=== PATIENT | female | born 1960 | race Caucasian/White ===

== ENCOUNTER 2018-07-18 22:26 | Emergency (ER) | payer OTHER ==
[2018-07-18 22:57] VITALS: BP 117/70; PULSE 82; RESP 16; TEMP 98.7; O2SAT 97
[2018-07-18] MEDS ORDERED: Sodium Chloride 0.9% 1,000 ML IV STA (23:22)
[2018-07-19 00:03] LABS: BASO % 0.4 % (0.0-2.0); EOS # 0.1 K/uL (0.0-0.7); EOS % 1.4 % (0.0-4.0); HEMOGLOBIN 12.9 g/dL (12.0-16.0); LYMPH # 0.9 K/uL (1.0-4.3); LYMPH % 10.3 % (20.0-40.0); MEAN CELL VOLUME 92.2 fl (81.0-99.0); MEAN CORPUSCULAR HEMOGLOBIN 30.8 pg (27.0-31.0); MEAN CORPUSCULAR HGB CONC 33.4 g/dL (33.0-37.0); MEAN PLATELET VOLUME 7.8 fl (7.2-11.7); MONO # 0.4 K/uL (0.0-0.8); MONO % 4.4 % (0.0-10.0); NEUT # 7.3 K/uL (1.8-7.0); NEUT % 83.5 % (50.0-75.0); RBC 4.19 Mil/uL (3.80-5.20); WHITE BLOOD COUNT 8.7 K/uL (4.8-10.8)
--- NOTE | 2018-07-19 00:10 | ED PDOC ---
HPI: Abdomen Time Seen by Provider: 07/18/18 22:59 Chief Complaint (Nursing): Abdominal Pain Chief Complaint (Provider): Abdominal Pain History Per: Patient History/Exam Limitations: no limitations Context: Travel Location Of Pain/Discomfort: Epigastric Associated Symptoms: Vomiting Additional Complaint(s): 57 y/o female presents to the ED complaining of abdominal pain with associated vomiting and diarrhea, onset x4 days ago. Patient reports that she started to experience episgastric discomfort x4 days ago then, x2 days ago, on Thursday, she started to have multiple episodes of vomiting and diarrhea.Patient reports vomiting was nbnb and diarrhea was watery. More recently however, diarrhea is a little blood tinged and patient reports associated rectal irritation. Patient states she came back from [place] a week ago. She also reports sick contact with at least one colleague at work with similar symptoms. She denies fever, chills or urinary symptoms. PMD: Joseluis Past Medical History Reviewed: Historical Data, Nursing Documentation, Vital Signs Vital Signs: Last Vital Signs Temp 98.7 F 07/18/18 22:52 Pulse 82 07/18/18 22:52 Resp 16 07/18/18 22:52 BP 117/70 07/18/18 22:52 Pulse Ox 97 07/18/18 22:52 - Medical History PMH: No Chronic Diseases - Surgical History Surgical History: Cholecystectomy - Family History Family History: States: No Known Family Hx - Social History Current smoker - smoking cessation education provided: No Alcohol: None Drugs: Denies - Immunization History Hx Tetanus Toxoid Vaccination: Yes Hx Influenza Vaccination: No Hx Pneumococcal Vaccination: No - Home Medications Home Medications: Ambulatory Orders Medication Instructions Recorded Ondansetron [Zofran] 4 mg PO Q6H PRN #5 tab 07/19/18 - Allergies Allergies/Adverse Reactions: Allergies Allergy/AdvReac Type Severity Reaction Status Date / Time No Known Allergies Allergy Verified 07/18/18 22:52 Review of Systems ROS Statement: Except As Marked, All Systems Reviewed And Found Negative (as per HPI otherwise negative) Constitutional: Negative for: Fever, Chills Gastrointestinal: Positive for: Vomiting, Diarrhea Genitourinary Female: Negative for: Dysuria, Frequency, Incontinence Physical Exam - Reviewed Nursing Documentation Reviewed: Yes Vital Signs Reviewed: Yes - Physical Exam Appears: Positive for: No Acute Distress Head Exam: Positive for: ATRAUMATIC, NORMOCEPHALIC Skin: Positive for: Warm, Dry Eye Exam: Positive for: EOMI, PERRL ENT: Positive for: Other (moist mucous membranes) Neck: Positive for: Painless ROM, Supple Cardiovascular/Chest: Positive for: Regular Rate, Rhythm. Negative for: Murmur Respiratory: Positive for: Normal Breath Sounds. Negative for: Respiratory Distress Gastrointestinal/Abdominal: Positive for: Soft, Tenderness (mild epigastric tenderness to palpation). Negative for: Mass, Distended, Guarding, Rebound Back: Positive for: Normal Inspection. Negative for: Muscle Spasm Extremity: Positive for: Normal ROM. Negative for: Deformity Lymphatic: Negative for: Adenopathy Neurologic/Psych: Positive for: Alert. Negative for: Motor/Sensory Deficits - Laboratory Results Result Diagrams: 07/18/18 23:50 07/18/18 23:50 - ECG O2 Sat by Pulse Oximetry: 97 (RA) Pulse Ox Interpretation: Normal Medical Decision Making Medical Decision Making: Time: 23:20 Initial Impression: vomiting and diarrhea Differential included but not limited to gastroenteritis, viral syndrome, dehydration, electrolyte abnormality, Traveler's Diarrhea. Initial Plan: * CMP * Lact acid * lipase * Magnesium * Phosphorous * ED urine dip * CBC w/ diff * IV fluids * Pepcid 20 mg * Zofran 8 mg * Blood culture * Stool culture 12am Endorsed to Dr Lynn pending ER workup, reassessment and final ER disposition Scribe Attestation: Documented by Souleymane Haas, acting as a scribe for Rayne Rodriguez MD. Provider Scribe Attestation: All medical record entries made by the Scribe were at my direction and personally dictated by me. I have reviewed the chart and agree that the record accurately reflects my personal performance of the history, physical exam, medical decision making, and the department course for this patient. I have also personally directed, reviewed, and agree with the discharge instructions and disposition. Disposition - Clinical Impression Clinical Impression: Gastroenteritis - Disposition Disposition: Transfer of Care Disposition Time: 00:00 Condition: STABLE Prescriptions: Ondansetron [Zofran] 4 mg PO Q6H PRN #5 tab PRN Reason: Nausea/Vomiting
--- NOTE | 2018-07-19 00:17 | ED PDOC ---
- Laboratory Results Result Diagrams: 07/18/18 23:50 07/18/18 23:50 - ECG O2 Sat by Pulse Oximetry: 97 (RA) Pulse Ox Interpretation: Normal Medical Decision Making Medical Decision Making: Time: 00:00 Patient care endorsed from Dr. Rodriguez to provider pending reevaluation. 03:00 Patient able to tolerate PO. On reevaluation patient's abdomen is soft and nontender. Patient condition is improved and diagnosis is Gastroenteritis. Scribe Attestation: Documented by Souleymane Haas, acting as a scribe for Dylan Lynn MD. Provider Scribe Attestation: All medical record entries made by the Scribe were at my direction and personally dictated by me. I have reviewed the chart and agree that the record accurately reflects my personal performance of the history, physical exam, medical decision making, and the department course for this patient. I have also personally directed, reviewed, and agree with the discharge instructions and disposition. Disposition - Clinical Impression Clinical Impression: Gastroenteritis - POA Present On Arrival: None - Disposition Disposition: Routine/Home Disposition Time: 03:00 Condition: IMPROVED Prescriptions: Ondansetron [Zofran] 4 mg PO Q6H PRN #5 tab PRN Reason: Nausea/Vomiting
[2018-07-19 00:18] LABS: ALB/GLOB RATIO 1.2 (1.0-2.1); ALBUMIN 3.6 g/dL (3.5-5.0); ALT/SGPT 112 U/L (9-52); AST/SGOT 218 U/L (14-36); BLOOD UREA NITROGEN 22 mg/dl (7-17); CALCIUM 8.6 mg/dL (8.4-10.2); GFR NON-AFRICAN AMERICAN > 60; LIPASE 87 U/L (23-300)
[2018-07-19] MEDS ORDERED: Potassium Chloride 20 mEq ER Tab PO ONE (01:21)
== END 2018-07-19 03:14 | disposition home or self-care (01) ==
LOC: H.ER 22:26
DX: K52.9 Noninfective gastroenteritis and colitis, unspecified (principal)
CPT/HCPCS: 80053; 83605; 83690; 83735; 84100; 85025; 87040; 96374; 99283; J2405; J7030